=== PATIENT | male | born 1980 | race Caucasian/White ===

== ENCOUNTER → 2021-09-09 14:01 | Outpatient (CLI) | payer BC, SELFPAY ==
--- NOTE | ~2021-09-09 | XR_ITS ---
XR lumbar spine 2-3V DATE: 09/09/2021 14:23 INDICATION: Low back pain TECHNIQUE: AP, lateral, coned lateral lumbosacral views COMPARISON: None FINDINGS: No fracture or bone destruction. The lumbar pedicles are intact. No spondylolisthesis. Lumb ar and lumbosacral interspaces are relatively well preserved. The sacroiliac joints are intact. There is a prominent amount of fecal material in the colon. IMPRESSION: No significant abnormality of the lumbar spine Prominent amount of fecal material in the colon Reviewed, dictated and finalized at location B.
== END ==
PROVIDERS: PCP Family Medicine; Visit Provider Nurse Practitioner Family
DX: M54.50 Low back pain, unspecified (principal)
CPT/HCPCS: 72100

== ENCOUNTER 2025-09-18 01:59 | Day surgery (SDC) | payer BC, SELFPAY ==
--- NOTE | 2025-09-06 15:37 | SUR.PREOP ---
[facility] has started construction of its new state of the art ER which will open Spring 2026. With this, we anticipate parking may be a challenge for some our surgical patients and families. Parking spaces are limited but are available for all Surgical, obstetrics, and ER patients sharing this lot. If you arrive and find you are having a hard time finding a parking space, please note that we understand the challenges, please drive around the hospital and park near Hospital Entrance 1. When you enter this entrance, you can ask a volunteer to direct or take you back to the surgical waiting area to check in. We appreciate everyone?s understanding of these expected challenges while we build for your future. Report to the Outpatient Waiting Room, entrance under the green pavilion located off [address], at time ___06____ on date ___09/18/25____. Planned Procedure Time: ____729____.? Time changes happen often and if your time is changed the preop area will call you the afternoon before. - You and your visitor will be asked to self-screen and do not enter if you have any COVID symptoms. Please call surgeon if you need to reschedule. - A mask is optional within the hospital at this time. Patients may have clear liquids (water, carbonated beverages, clear teas, apple juice) until 3 hours prior to surgery with a maximum of 20 ounces. - NO CLEAR LIQUIDS AFTER 0430 - No food from midnight until time of surgery and no smoking, or chewing tobacco (or any form of nicotine). No chewing gum, candy or mints. - Infants may have breast milk until 4 hours before surgery, formula 6 hours prior to surgery. - Children will be allowed to drink immediately following surgery.? If applicable, please bring a bottle or sippy cup to assist with drinking. Juice, water, soda, and popsicles are readily available.? For infants on formula, please bring formula the day of surgery.? Pacifiers are allowed. Take only the following medications with a SIP of water on the morning of surgery: N/A DO NOT STOP ANY OF YOUR OTHER PRESCRIPTION MEDICATIONS PRIOR TO SURGERY EXCEPT THE FOLLOWING Hold all vitamins and supplements for 3 days per anesthesiologist. Medications to discontinue per physician N/A Date to take last dose Please no make-up, nail bahamian, hairspray, perfume, deodorant, or body powder the day of surgery.? No jewelry (including any body piercings) or valuables the day of surgery, leave them at home.? Please take a shower or bath the night before, or the morning of, surgery with an antibacterial soap.? Wear comfortable, loose fitting clothing.? Children are encouraged to wear pajamas. - Jewelry must be removed prior to entering the operating room.? Rings and piercings that are not removed may be cut off. - The hospital will not accept responsibility for valuables.? - Please leave all valuables, including medications, at home the day of surgery. If you are going home after surgery, a licensed tank truck driver must drive you home.? - NO public transportation without another adult if you receive anesthesia. - We recommend that an adult stay with you for 24 hours following discharge. - We also recommend that you do not drive, make important decision, drink alcoholic beverages, or take any drugs that were not prescribed by your health care provider for at least 24 hours after your discharge time. For Pediatric surgeries, we recommend two adults accompany the child home. Follow any additional instructions given to you from your surgeon. Telephone instructions given to ANTONIO SALGADO and asked if any additional questions and then verbalized understanding. Patient advised to call surgeon office or pre surgery nurse liaison [phone] if any additional questions.
[2025-09-06 15:44] VITALS: BMI 29.9
[2025-09-18] VITALS (8 sets, daily range): BP systolic 113–135; BP diastolic 73–84; PULSE 63–77; RESP 14–18; TEMP 36.1–36.2; O2SAT 97–100; BMI 30.2
[2025-09-18] MEDS: LACTATED RINGERS 1,000 ML 30 ML IV CONT ×2 (06:35→08:27)
[2025-09-18] MEDS: OXYMETAZOLINE HCL 0.05% NAS 15 ML BTL (*BKC) 1 SPRAY NASAL (06:42)
[2025-09-18] MEDS: ACETAMINOPHEN 500 MG TABLET 1000 MG PO (06:43)
--- NOTE | 2025-09-18 06:50 | P.PNAN_ITS ---
Anes - Initial Pre Proc Eval Procedure: Operation Date: 09/18/25 07:30 Proposed Procedures p Bilateral Turbinate Reduction - Albert Del Castillo MD s Septoplasty - Albert Del Castillo MD Date/Time: 09/18/25 06:50 Surgeon: Albert Del Castillo MD Pre Op Diagnosis: Dev Septum, Hypertrophy Turbinate Patient Data Age: 45 Gender: M Height: 1.83 m Weight: 101.1 kg Allergies Allergy/AdvReac Type Severity Reaction Status Date / Time No Known Allergies Allergy Verified 09/18/25 06:31 Home Medications ?Medication ?Instructions ?Recorded ?Confirmed ?Type No Home Medications 07/05/25 09/06/25 H istory Patient hx anesthesia problems: none Family hx anesthesia problems: none Results Review: All pre-operative results and documents have been reviewed as part of the pre- operative evaluation. [facility] Past Medical History Medical History Cerumen impaction Otitis media BMI 30.0-30.9,adult BMI 27.0-27.9,adult Dietary counseling and surveillance (01/15/17) Onychomycosis Family History Family History Father No problems noted. Mother No problems noted. Sibling No problems noted. 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 Informed Consent: The patient's anesthetic plan and its attendant risks and benefits were discussed with the patient/family/POA. Questions were solicited and answers provided to the satisfaction of the patient/family/POA.
--- NOTE | 2025-09-18 07:11 | P.HP_ITS ---
H&P: HPI History of Present Illness Date/Time: 09/18/25 07:11 Chief Complaint: deviated septum Narrative: nasal dyspnea Review of Systems Review of Systems: All systems reviewed & are unremarkable except as noted in HPI and below PMFSH Past Medical History Medical History Cerumen impaction Otitis media BMI 30.0-30.9,adult BMI 27.0-27.9,adult Dietary counseling and surveillance (01/15/17) Onychomycosis Family History Family History Father No problems noted. Mother No problems noted. Sibling No problems noted. 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 Gender identity (if verbalized by the patient): Male Spiritual care concerns: No Meds Home Medications and Allergies Home Medications ?Medication ?Instructions ?Recorded ?Confirmed ?Type No Home Medications 07/05/25 09/06/25 H istory Allergies Allergy/AdvReac Type Severity Reaction Status Date / Time No Known Allergies Allergy Verified 09/18/25 06:31 Exam Narrative: significant septal deviation, turbinate hypertrophy, rest of exam unremarkable Assessment and Plan Assessment and plan (1) Deviated septum: Code(s): J34.2 - Deviated nasal septum Status: Acute Plan [place] is here for septoplasty and turbinoplasty. r/b/a reviewed, all questions answered and he agrees to proceed, refer to outpt H&P for additional detail.
--- NOTE | 2025-09-18 07:13 | WPDHPUPDATE1 ---
History and Physical Update Update Date/Time: 09/18/25 07:13 History and Physical has been reviewed, including an updated exam of the patient. There are NO changes in the patient's condition. Risks, benefits, and alternatives have been discussed and questions answered. Patient agrees to proceed with procedure.
[2025-09-18] MEDS: ceFAZolin 2 GM in SODIUM CHLORIDE 0.9% IV 50 ML 100 ML IVPB (07:25)
[2025-09-18] MEDS: LIDO 1%/EPINEPHRINE 1:100,000 20 ML VIAL 10 ML INFILTRATE (07:43)
--- NOTE | 2025-09-18 08:26 | P.OP_ITS ---
Procedure Note - Detailed Date of Procedure 09/18/25 Pre-op Diagnosis Dev Septum, Hypertrophy Turbinate Post-op Diagnosis Same Procedure Performed septoturbinoplasty, endoscopic Surgeon Albert Del Castillo MD Anesthesia General Indications deviated septum Findings significant left caudal deviation, extending to the right mid-posteriorly. coffey splints bilaterally Description of Procedure After obtaining informed consent and proper site verification the patient was brought to the operating room and placed on the operating table in the supine position. They were placed under general endotracheal anesthesia by the anesthesia provider. The patient was then draped in standard fashion for septoplasty and turbinoplasty. A timeout was performed and the correct patient and procedure were verified. The nasal cavity was injected with 1% lidocaine with 1-100,000 epinephrine and packed with afrin-soaked cottonoid pledgets. ? Attention was then directed to the nasal septum. A hemitransfixion incision was made in the left caudal septum and a mucoperichondrial flap was elevated in the usual fashion. The flap was elevated under endoscopic visualization and the remainder of the case was performed with endoscopic assistance. Using a D- knife, an incision was made through the cartilaginous septum with care to preserve the appropriate caudal and dorsal ?L-strut? of cartilage. The cartilage was then disarticulated from the bony-cartilaginous junction and the deviated cartilage was removed. Further deviated bone and cartilage was removed from the maxillary crest and posterior bony septum with care to avoid injury to the mucoperichondrial flap using a combination of dissection and Ej- Arreola forceps. Lastly, the caudal deviation was addressed by carefully resecting the caudal portion of the septum that was deflecting into the left nasal airway while minimizing loss to structural support. This led to significant improvement in nasal airway patency. Once this was completed, the hemitransfixion incision was closed using simple interrupted 4-0 chromic suture. A quilting stitch to reapproximate the mucoperichondrial flaps was then placed using 4-0 plain gut suture on a Quinn needle. ? Next attention was directed to the turbinates. Using a 0? telescope and 2mm turbinate blade microdebrider, a stab incision was made in the anterior face of the turbinate and dissection was carried posterior to perform submucosal resection. Next the turbinate was outfractured using a blunt instrument. A similar procedure was then performed on the right-hand side without difficulty. Coffey splints covered in mupirocin ointment were placed in the nasal cavity and secured to the membranous septum using a 3-0 Prolene suture. ?The patient was awakened from general anesthesia extubated in the operating room, and transported to the recovery room in stable condition without complication. Estimated Blood Loss 10 Drains No Packing Yes (coffey splints) Pathology None sent Complications No immediate complications Condition Stable Disposition PACU
[2025-09-18] MEDS: MUPIROCIN 2% OINT 22 GM TUBE 1 APPLIC EACH NARE (09:06)
== END 2025-09-18 10:06 | disposition home or self-care (01) ==
PROVIDERS: PCP Family Medicine; Visit Provider Otolaryngology
PROC: (CPT 30520; principal; 2025-09-18 07:30)
PROC: (CPT 30520; 2025-09-18 07:30)
DX: J34.2 Deviated nasal septum (principal); E66.9 Obesity, unspecified; Z68.30 Body mass index [BMI] 30.0-30.9, adult
CPT/HCPCS: 30520; 30140; J0690; A9270; J1100; J2003; J2004; J2250; J2405; J2704; J3010; J7120